=== PATIENT | male | born 1950 | race Caucasian/White ===

== ENCOUNTER → 2023-08-16 08:13 | Outpatient (REF) | payer MEDICARE, OTHER, SELFPAY | LOC: RCS 08:13 | PROVIDERS: ATTENDING PHYSICIAN Internal Medicine Cardiovascular Disease; FAMILY PHYSICIAN Internal Medicine | DX: R06.09 Other forms of dyspnea (principal); R01.1 Cardiac murmur, unspecified | CPT/HCPCS: 93017; 93320; 93325; 93350 ==